=== PATIENT | male | born 2000 | race Two or more races ===

== ENCOUNTER 2022-11-04 16:46 | Emergency (ER) | payer MEDICAID ==
[~2022-11-04] VITALS: Ht 170.2 cm; Wt 99.5 kg
[2022-11-04 19:17] LABS: Basophils # (auto) 0.1 10 ^3/uL (0-0.2); Basophils % (auto) 0.6 % (0.0-2.0); Eosinophils # (auto) 0.4 10 ^3/uL (0-0.8); Eosinophils % (auto) 3.6 % (0.0-7.0); Hematocrit 49.4 % (41.0-53.0); Hemoglobin 16.9 g/dL (13.5-17.5); Lymphocytes # (auto) 3.1 10 ^3/uL (0.4-5.4); Lymphocytes % (auto) 32.6 % (10.0-50.0); Mean Corpuscular Hemoglobin 28.7 pg (28.0-32.0); Mean Corpuscular Hgb Conc. 34.3 g/dL (32.0-36.0); Mean Corpuscular Volume 83.7 fL (80.0-100.0); Monocytes # (auto) 0.5 10 ^3/uL (0-1.3); Monocytes % (auto) 4.9 % (0.0-12.0); Neutrophils # (auto) 5.6 10 ^3/uL (1.6-8.6); Neutrophils % (auto) 58.3 % (37.0-80.0); Nucleated Red Blood Cells % 0.1 %; Red Cell Distribution Width 13.5 % (11.8-14.3); White Blood Cell 9.6 10^3/uL (4.4-10.8)
[2022-11-04 19:36] LABS: Alanine Aminotransferase 20 U/L (7-40); Albumin 5.3 g/dL (3.2-4.8); Alkaline Phosphatase 116 U/L (46-116); Anion Gap 7 (5-15); Aspartate Aminotransferase 11 U/L (13-40); BUN/Creatinine Ratio 16.3 (10.0-20.0); Blood Alcohol < 3.0 mg/dL (<10); Blood Urea Nitrogen 13 mg/dL (9-23); Calcium 9.4 mg/dL (8.7-10.4); Carbon Dioxide 27 mmol/L (20-30); Chloride 106 mmol/L (98-107); Glucose 94 mg/dL (74-106); Magnesium 1.9 mg/dL (1.6-2.6); Potassium 4.2 mmol/L (3.5-5.1); Sodium 140 mmol/L (136-145)
[2022-11-04 19:37] LABS: Total Protein 7.4 g/dL (5.7-8.2)
[2022-11-04 21:00] LABS: Urine Bacteria NONE SEEN /hpf (None Seen); Urine Blood Negative /uL (Negative); Urine Clarity Clear (Clear); Urine Color Yellow (Yellow); Urine Mucus FEW (None Seen); Urine Protein, UAD TRACE (Negative); Urine Specific Gravity 1.033 (1.001-1.035); Urine Urobilinogen Normal (Negative); Urine WBC 1 /hpf (0 - 3); Urine pH 5.5 (5.0-8.0)
[2022-11-04 21:09] LABS: Amphetamine Screen, Urine Neg (NEGATIVE); Barbiturate Scree,Urine Neg (NEGATIVE); Benzodiazephine Screen, Urine Neg (NEGATIVE); Cannabinoid Screen, Urine Neg (NEGATIVE); Cocaine Screen, Urine Neg (NEGATIVE); Opiate Scree,Urine Neg (NEGATIVE); Phencyclidine Screen, Urine Neg (NEGATIVE)
[2022-11-04 21:48] VITALS: BP 123/65; PULSE 60; RESP 16; TEMP 97.9; O2SAT 99
== END 2022-11-04 21:49 | disposition home or self-care (01) ==
LOC: ER 16:46
DX: S09.90XA Unspecified injury of head, initial encounter (principal); R55 Syncope and collapse; M25.552 Pain in left hip; R07.89 Other chest pain; X58.XXXA Exposure to other specified factors, initial encounter; Y93.89 Activity, other specified; Y92.89 Other specified places as the place of occurrence of the external cause; Y99.8 Other external cause status
CPT/HCPCS: 36415; 70450; 71045; 73502; 80053; 80307; 80320; 81001; 83605; 83735; 84484; 85025; 93005